=== PATIENT | male | born 1990 | race Caucasian/White ===

== ENCOUNTER 2024-09-23 12:58 | Emergency (ER) | payer SELFPAY ==
[~2024-09-23] VITALS: Ht 188 cm; Wt 56.9 kg
[2024-09-23 13:09] VITALS: O2SAT 99
[2024-09-23 15:07] LABS: BASOPHILS % 0.7 % (0.0-2.0); EOSINOPHILS % 1.2 % (0.0-5.0); HEMATOCRIT. 40.6 % (42.0-52.0); HEMOGLOBIN. 13.6 g/dL (14.0-18.0); LYMPHOCYTES % 18.8 % (20.0-50.0); MEAN CORPUSCULAR HEMOGLOBIN 29.8 pg (28.0-32.0); MEAN CORPUSCULAR HGB CONC 33.5 g/dL (31.0-37.0); MEAN CORPUSCULAR VOLUME 88.7 fL (80.0-94.0); MEAN PLATELET VOLUME 8.6 fl (7.4-10.4); MONOCYTES % 5.8 % (2.0-8.0); NEUTROPHILS % 73.5 % (40.0-76.0); PLATELET 251 x1000/uL (130-400); RED BLOOD CELL COUNT 4.57 mill/uL (4.7-6.1); WHITE BLOOD COUNT 8.3 x1000/uL (4.5-11.0)
[2024-09-23 15:26] LABS: CHLORIDE 106 mEq/L (98-107); POTASSIUM 3.9 mEq/L (3.5-5.1); SODIUM 145 mEq/L (136-145)
[2024-09-23 15:27] LABS: CARBON DIOXIDE 32 mEq/L (21-32)
[2024-09-23 15:28] LABS: CALCIUM 9.8 mg/dL (8.7-10.4)
[2024-09-23 15:33] LABS: CREATININE 0.9 mg/dL (0.6-1.3)
[2024-09-23 15:34] LABS: ALANINE AMINOTRANSFERASE 17 IU/L (10-49); ALBUMIN 4.7 g/dL (3.2-4.8); ASPARTATE AMINOTRANSFERASE 21 IU/L (<34); GLUCOSE 70 mg/dL (70-105); UREA NITROGEN BLOOD 9 mg/dL (9-23)
[2024-09-23 15:36] LABS: BILIRUBIN DIRECT < 0.1 mg/dL (<=3.0); BILIRUBIN TOTAL 0.3 mg/dL (0.1-1.0); PROTEIN TOTAL 7.3 g/dL (6.0-8.3)
[2024-09-23 16:28] VITALS: O2SAT 99
[2024-09-23] MEDS: CEFTRIAXONE 2GM/50ML 50 ML IV ONE (16:40)
[2024-09-23] MEDS: SULFAMETHOXAZOLE/TRIMETHOPRIM 800/160MG TABLET PO SCH (16:46)
[2024-09-23] MEDS ORDERED: HYDROCODONE/ACETAMINOPHEN 5/325MG TABLET PO PRN (17:45)
[2024-09-23] MEDS ORDERED: NALOXONE HCL 0.4MG/ML VIAL IV PRN (17:45)
[2024-09-23 17:56] VITALS: BP 113/66; PULSE 60; RESP 18; TEMP 36.8
[2024-09-23] MEDS ORDERED: SULF1TAB48 MT (19:52)
[2024-09-23 21:03] LABS: HEPATITIS B SURFACE ANTIGEN NEGATIVE (Negative)
[2024-09-23 21:24] LABS: HEPATITIS C AB NON REACTIVE (Neg) (Negative)
== END 2024-09-23 20:00 | disposition left against medical advice (07) ==
LOC: ER 13:14 → EDBEDREQ 15:49 → ENRESERV 16:14 → CANBEDREQ 16:18 → UNDOADMIN 17:04 → 8EST 17:04 → ER 20:00
DX: L03.116 Cellulitis of left lower limb (principal); F41.9 Anxiety disorder, unspecified; Z79.899 Other long term (current) drug therapy
CPT/HCPCS: 80076; 80048; 80307; 80329; 86141; 85025; 85610; 85651; 87340; 36415; 86705; 73630; 96365; 99284; J0696; 99285